=== PATIENT | male | born 1970 | race Caucasian/White ===

== ENCOUNTER → 2018-07-05 10:53 | Outpatient (CLI) | payer OTHER, SELFPAY | PROVIDERS: Family Provider Family Medicine; PCP Family Medicine | DX: Z46.89 Encounter for fitting and adjustment of other specified devices (principal) ==

== ENCOUNTER → 2018-07-13 21:22 | Outpatient (CLI) | payer OTHER, SELFPAY | DX: G47.30 Sleep apnea, unspecified (principal) | CPT/HCPCS: 95811 ==